=== PATIENT | male | born 1975 | race Caucasian/White ===

== ENCOUNTER → 2020-01-03 | Outpatient (CLI) | payer BC, OTHER ==
[~2020-01-03] MED LIST: AUGMENTIN 875875 MG PO; AZITHROMYCIN 2250 MG PO; CIPRO500 MG PO; DOXYCYCLINE 10100 M1 PO; FLAGYL500 MG PO; HIBICLENS120 ML TP; LOMOTIL TABLET1 EACH PO; PERCOCET 5-3251 EACH PO; PRINIVIL20 MG PO; PROAIR HFA8.5 GM INH; PROTONIX40 M1 PO; TESSALON PERLE100 MG PO
== END ==
LOC: LAB 14:20
PROVIDERS: ATTEND Family Medicine
DX: U07.1 COVID-19 (principal)